=== PATIENT | male | born 1940 | race Caucasian/White ===

== ENCOUNTER → 2019-08-17 | Outpatient (CLI) | payer MEDICARE, OTHER ==
[2019-08-17 16:44] LABS: HCT 40.4 % (39.0-53.0); HGB 13.3 gm/dL (13.0-17.5); Mean Platelet Volume 7.6; Platelet Count 221 k/uL (150-450); RBC 4.59 m/uL (4.30-5.90); RDW 13.6 % (11.5-15.5); WBC 8.5 k/uL (3.8-10.6)
[2019-08-17 16:52] LABS: Potassium 4.3 mmol/L (3.5-5.1)
== END | disposition home or self-care (01) ==
LOC: LABPAT 16:19
DX: Z01.812 Encounter for preprocedural laboratory examination (principal); I20.8 Other forms of angina pectoris
CPT/HCPCS: 80051; 82565; 84520; 85027

== ENCOUNTER 2019-08-21 10:21 | Day surgery (SDC) | payer MEDICARE, OTHER ==
[2019-08-20 09:19] VITALS: BMI 26.2
[~2019-08-21 10:21] MED LIST: ALPRAZolam 0.25 MG TAB PO PRN; ALPRAZolam 0.5 MG TAB PO PRN; ASPIRIN 325 MG TAB PO ONE; ATORVASTATIN 80 MG TAB PO ONE; NITROGLYCERIN SL TABS 0.4 MG TAB SUBLINGUAL PRN; SODIUM CHLORIDE 0.9% 1,000 ML in EMPTY BAG 1 BAG IV ONE
[2019-08-21] MEDS ORDERED: LIDOCAINE 1% INJ 10MG/ML (20 ML MDV) ONE (11:28)
[2019-08-21] MEDS ORDERED: fentaNYL (PF) 50 MCG/ML 2 ML AMP ONE (11:28)
[2019-08-21] MEDS ORDERED: HEPARIN SODIUM 1,000 UN/ML (10ML VL) ONE (11:29)
[2019-08-21] MEDS ORDERED: VERAPAMIL 2.5 MG/ML 2 ML AMP ONE (11:29)
[2019-08-21] MEDS: MIDAZOLAM 2 MG/2 ML VIAL IV ONE ×2 (11:34→12:17)
[2019-08-21] MEDS ORDERED: fentaNYL (PF) 50 MCG/ML 2 ML AMP IV ONE (11:36)
[2019-08-21] MEDS ORDERED: LIDOCAINE 1% INJ 10MG/ML (20 ML MDV) SQ ONE (11:37)
[2019-08-21] MEDS: VERAPAMIL SYRINGE (5 MG/10 ML) INTRAARTER ONE ×2 (11:44→13:13)
--- NOTE | 2019-08-21 12:06 | P.CARDCATH ---
Date of Procedure: 08/21/19 Preoperative Diagnosis: Crescendo angina Postoperative Diagnosis: Critical lesion involving the distal RCA and moderate disease involving the circumflex Description of Procedure: HISTORY: This is a 79-year-old gentleman with history of ischemic heart disease with a previous myocardial infarction and stent placement of the LAD in 1996 and also stent placement of the RCA for angina in 2003. Patient presented to the hospital with complaints of exertional chest discomfort for the last 2 weeks which is eccentric in nature. Patient is advised to have a cardiac catheterization for definitive diagnosis. CONSENT:I have discussed the risks, benefits and alternative therapies for the above-mentioned procedure and for both sedation/analgesia as well as necessary blood product administration, if indicated, as they pertain to this patient. The patient has indicated understanding and acceptance of the risks and procedures discussed. PROCEDURE: Patient was brought to the lab in a fasting state. Patient was given some IV sedation. The right wrist is infiltrated with lidocaine and right radial artery was entered using Seldinger technique. A 6-Indonesian catheter was left in place and selective coronary arteriography was performed. Patient tolerated the procedure well. Patient is waiting to have stent placement of the RCA by Dr. YVETTE Villa. No immediate complications were noted and patient was transferred to [facility] in a stable condition Conscious Sedation: Versed 1mg Fentanyl 50 g Duration 27minutes HEMODYNAMICS: The aortic pressure is 139/74. The left ventricular end-diastolic pressure was about 5. There was no gradient across the aortic valve SELECTIVE CORONARY ARTERIOGRAPHY: LEFT MAIN: The left coronary system is calcified. The left main coronary artery is a relatively small with mild disease without any critical lesions THE LEFT ANTERIOR DESCENDING CORONARY ARTERY: This is a fairly caliber vessel giving rise to 2 diagonal and septal branches. The LAD has mild diffuse disease and has patent stent without any significant critical lesions THE LEFT CIRCUMFLEX AND IS CORONARY ARTERY: This is a moderate caliber vessel with about 60-70% stenosis in the midportion which appears to be stable. Again calcified vessel THE RIGHT CORONARY ARTERY:. This is a calcified vessel with a diffuse plaque. There is a critical 95% stenosis involving the distal RCA before the bifurcation to PDA and PLV LEFT VENTRICULOGRAPHY: Not performed FINAL IMPRESSION: Critical lesion involving the distal RCA. Diffusedly diseased and calcified vessels. There is moderate to severe disease and also the midcircumflex also PLAN: Stent placement of the RCA. The circumflex lesion is chronic and stable. May consider doing a functional evaluation to see visit ischemia in the circumflex distribution in the future PROGNOSIS: Fair
[2019-08-21] MEDS ORDERED: BIVALIRUDIN BOLUS 250 MG/50 ML IV ONE (12:44)
[2019-08-21] MEDS ORDERED: BIVALIRUDIN 250 MG in SODIUM CHLORIDE 0.9% 50 ML IV ONE (12:45)
[2019-08-21] MEDS ORDERED: HYDROmorphone 1 MG/ML 1 ML SYRINGE ONE (13:06)
[2019-08-21] MEDS ORDERED: HYDROmorphone 1 MG/ML 1 ML SYRINGE IVP ONE (13:08)
[2019-08-21] MEDS ORDERED: NITROGLYCERIN 1000MCG/10ML SYRINGE INTRACORON ONE (13:10)
[2019-08-21] MEDS ORDERED: CLOPIDOGREL 75 MG TAB PO ONE (13:24)
[2019-08-21] MEDS ORDERED: ATROPINE SULFATE 0.1 MG/ML 10ML SYRINGE IV PRN (13:24)
[2019-08-21] MEDS ORDERED: IOPAMIDOL-370 125ML BTL INJ ONE (13:24)
[2019-08-21] MEDS ORDERED: RX INFO: IV CONTRAST WAS GIVEN 1 EACH MISC MISCELLANE PRN (13:24)
[2019-08-21] MEDS ORDERED: IOPAMIDOL-370 100ML BTL INJ ONE (13:25)
[2019-08-21] MEDS ORDERED: CLOPIDOGREL 75 MG TAB ONE (13:28)
[2019-08-21] MEDS: SODIUM CHLORIDE 0.9% 1,000 ML IV SCH ×2 (16:36→23:06)
[2019-08-21] MEDS: METOPROLOL TARTRATE 25 MG TAB PO SCH (19:37)
[2019-08-21 20:55] LABS: Glucose,Whole Blood 89 mg/dL (75-99)
--- NOTE | 2019-08-21 21:26 | PTCA ---
PERCUTANEOUSTRANS CORORONARY ANGIOGRAPHY DATE OF SERVICE: 08/21/2019 PROCEDURE: PTCA and stenting of a super dominant RCA with a drug-eluting stent. PERFORMED BY: Dr. Ruben Villa. SEDATION: Moderate conscious sedation time was 41 minutes. CLINICAL INFORMATION: Enoc Juarez is an 79-year-old gentleman with history of CAD, hypertension, hyperlipidemia, and benign prostatic hypertrophy. He had a previous stent of LAD performed in 1996. In year 2003, I performed stenting of his RCA in the midportion. He now comes in with unstable angina picture, underwent cardiac cath by Dr. Yap, which revealed 95% distal RCA lesion just before bifurcation and the PDA has diffuse disease in it, but PLV was a larger vessel, free of significant disease. The previously stented LAD was patent, but the distal end of the stent had about a 40% to 50% narrowing. LAD stent was widely patent. He was advised intervention that was performed in the same setting. The procedure was performed from the right radial approach. PROCEDURE NOTE: The existing 6-Greenlandic introducer in the right radial artery was used to procedure. I used an ART 3.5 guide catheter to cannulate the left coronary artery and a Whisper wire to cross the lesion. A 2.5 12 mm NC Trek balloon was used to pre-dilate the lesion. The lesion was quite resistant. I then tried to advance the stent, but because of the tortuosity in the proximal portion of the RCA, the stent would push the guide catheter back. After a couple of attempts, I switched over to a GuideLiner. I placed the GuideLiner beyond the tortuous segment in the proximal portion of the RCA and with the GuideLiner in position, I advanced a 3.0 caliber 12 mm Xience stent and deployed this at 13 atmospheres. Patient had chest pain and inferior ST elevation. Excellent angiographic result was achieved without complication. I used the same balloon and dilated the distal end of the previous stent at 12 atmospheres. Excellent angiographic result was achieved. Patient was chest pain free. EKG was normal. Excellent angiographic result without complication was achieved. The patient received 600 mg of Plavix. He received Angiomax bolus and infusion as per protocol. Moderate conscious sedation time was 41 minute. Results were discussed with the patient and his friend. MMODL / IJN: [id number] /
[2019-08-21] MEDS: MAG HYDROX/AL HYDROX/SIMETH 30 ML CUP PO PRN (21:35)
[2019-08-21] MEDS ORDERED: HYDROcodone/APAP 7.5-325MG 1 EACH TAB PO ONE (23:15)
[2019-08-22 03:49] VITALS: RESP 18; TEMP 97.6
[2019-08-22] MEDS: METOPROLOL TARTRATE 25 MG TAB PO SCH (06:17)
[2019-08-22] MEDS: MAG HYDROX/AL HYDROX/SIMETH 30 ML CUP PO PRN (06:23)
[2019-08-22 06:35] LABS: Basophils % (A) 1 %; Eosinophils # (A) 0.2 k/uL (0-0.7); Eosinophils % (A) 4 %; HCT 36.4 % (39.0-53.0); Lymphocytes # (A) 1.2 k/uL (1.0-4.8); Lymphocytes % (A) 21 %; MCH 28.6 pg (25.0-35.0); MCHC 32.8 g/dL (31.0-37.0); Mean Platelet Volume 7.5; Monocytes # (A) 0.6 k/uL (0-1.0); Monocytes % (A) 10 %; Neutrophils # (A) 3.5 k/uL (1.3-7.7); Neutrophils % (A) 60 %; Platelet Count 188 k/uL (150-450); RBC 4.19 m/uL (4.30-5.90); RDW 13.7 % (11.5-15.5); WBC 5.7 k/uL (3.8-10.6)
[2019-08-22 06:59] LABS: Calcium 8.5 mg/dL (8.4-10.2); Potassium 3.8 mmol/L (3.5-5.1)
--- NOTE | 2019-08-22 08:22 | P.DS ---
Providers Date of admission: 08/21/2019 Attending physician: Marycarmen Yap Consults: 08/21/19 13:24 Consult Physician Routine Consulting Provider: [facility] Consult Reason/Comments: Post Interventional patient Do you want consulting provider notified?: Already Contacted Primary care physician: Violette Nina - Discharge Diagnosis(es) (1) Crescendo angina Current Visit: Yes Status: Acute (2) CAD (coronary artery disease) Current Visit: Yes Status: Acute (3) Essential hypertension Current Visit: Yes Status: Acute (4) Hypercholesterolemia Current Visit: Yes Status: Acute Hospital Course: This patient was brought in for cardiac catheterization because of crescendo angina. He was found have a critical lesion involving the distal RCA before the bifurcation to PDA and PLV. He also has a moderate to severe disease in the circumflex which is stable. The LAD appeared to be free of any significant occlusive disease with patent stent. Patient had a stent placement of the distal RCA with balloon dilatation of the mid RCA. Patient had some discomfort in the right arm. Last night, which is relieved with [place]. His pulses preserved and there is no hematoma in the site seemed to be healing well. He is not having pain at this time. Patient had some discomfort in the epigastric and chest area lasting for a few minutes. However, patient is free of any pain at this time. He is tolerating activity very well. His blood pressure is high this morning but patient got his morning medications. We will monitor his blood pressure and if the blood pressure is stable and patient is tolerating activity, patient will be discharged home later today. Patient will continue home medication except discontinuing Zocor and continue Lipitor 80 mg. He'll be also on Plavix 75 mg along with home medications. Follow-up in the office in one week Plan - Discharge Summary Discharge Rx Participant: Yes New Discharge Prescriptions: New Clopidogrel [Plavix] 75 mg PO DAILY #90 tab Atorvastatin [Lipitor] 80 mg PO HS #90 tab Nitroglycerin Sl Tabs [Nitrostat] 0.4 mg SUBLINGUAL Q5M PRN #100 tab PRN Reason: Chest Pain Aspirin 81 mg PO DAILY chew Metoprolol Tartrate [Lopressor] 25 mg PO BID tab Mag Hydrox/Al Hydrox/Simeth [Maalox] 30 ml PO Q4HR PRN ml PRN Reason: Heartburn Continue Cholecalciferol [Vitamin D3 (25 Mcg = 1000 Iu)] 1,000 unit PO DAILY Tamsulosin [Flomax] 0.4 mg PO DAILY Enalapril [Vasotec] 20 mg PO DAILY Atenolol [Tenormin] 25 mg PO DAILY Aspirin 81 mg PO DAILY Multivitamins, Thera [Multivitamin (formulary)] 1 tab PO DAILY Zinc 50 mg PO DAILY Vitamin B Complex 1 each PO DAILY Ubidecarenone [Co Q-10] 100 mg PO DAILY Discontinued Simvastatin [Zocor] 40 mg PO HS Discharge Medication List Aspirin 81 mg PO DAILY 08/20/19 [History] Atenolol [Tenormin] 25 mg PO DAILY 08/20/19 [History] Cholecalciferol [Vitamin D3 (25 Mcg = 1000 Iu)] 1,000 unit PO DAILY 08/20/19 [History] Enalapril [Vasotec] 20 mg PO DAILY 08/20/19 [History] Multivitamins, Thera [Multivitamin (formulary)] 1 tab PO DAILY 08/20/19 [History] Tamsulosin [Flomax] 0.4 mg PO DAILY 08/20/19 [History] Ubidecarenone [Co Q-10] 100 mg PO DAILY 08/20/19 [History] Vitamin B Complex 1 each PO DAILY 08/20/19 [History] Zinc 50 mg PO DAILY 08/20/19 [History] Aspirin 81 mg PO DAILY chew 08/22/19 [Rx] Atorvastatin [Lipitor] 80 mg PO HS #90 tab 08/22/19 [Rx] Clopidogrel [Plavix] 75 mg PO DAILY #90 tab 08/22/19 [Rx] Mag Hydrox/Al Hydrox/Simeth [Maalox] 30 ml PO Q4HR PRN ml 08/22/19 [Rx] Metoprolol Tartrate [Lopressor] 25 mg PO BID tab 08/22/19 [Rx] Nitroglycerin Sl Tabs [Nitrostat] 0.4 mg SUBLINGUAL Q5M PRN #100 tab 08/22/19 [Rx] Discharge Disposition: HOME SELF-CARE
[2019-08-22] MEDS ORDERED: TAMSULOSIN 0.4 MG CAP.ER.24H PO SCH (09:00)
[2019-08-22] MEDS ORDERED: LISINOPRIL 20 MG TAB PO SCH (09:00)
[2019-08-22] MEDS ORDERED: ASPIRIN 81 MG PO SCH (09:00)
[2019-08-22] MEDS ORDERED: CLOPIDOGREL 75 MG TAB PO SCH (09:00)
[2019-08-22] MEDS ORDERED: LISINOPRIL 10 MG TAB PO SCH (09:00)
[2019-08-22 11:09] VITALS: BP 188/97; PULSE 66
[2019-08-22] MEDS ORDERED: ATORVASTATIN 80 MG TAB PO SCH (21:00)
== END 2019-08-22 15:15 | disposition home or self-care (01) ==
LOC: CATHCVL 10:21 → 3SCARD 13:16 → CATHCVL 08-22 15:15
PROVIDERS: ATTEND Internal Medicine Cardiovascular Disease
DX: I25.110 Atherosclerotic heart disease of native coronary artery with unstable angina pectoris (principal); I10 Essential (primary) hypertension; I25.2 Old myocardial infarction; E78.5 Hyperlipidemia, unspecified; N40.0 Benign prostatic hyperplasia without lower urinary tract symptoms; E78.00 Pure hypercholesterolemia, unspecified; F17.210 Nicotine dependence, cigarettes, uncomplicated; Z95.5 Presence of coronary angioplasty implant and graft; Z79.82 Long term (current) use of aspirin; Z79.899 Other long term (current) drug therapy; Z88.8 Allergy status to other drugs, medicaments and biological substances
CPT/HCPCS: 93458; 80048; 85025; C9600; C1769 ×3; C1887 ×2; C1725; C1874; C1894; J2250; J2001; J3010; J1170; J0583; J1644; Q9967 ×2

== ENCOUNTER 2022-09-24 10:08 | Day surgery (SDC) | payer MEDICARE, OTHER ==
[~2022-09-24 10:08] MED LIST changes: -ASPIRIN 325 MG TAB PO ONE; +ASPIRIN 325 MG TAB PO STA; -ATORVASTATIN 80 MG TAB PO ONE; +ATORVASTATIN 80 MG TAB PO STA; +HEPARIN SODIUM,PORCINE 10,000 UNIT in SODIUM CHLORIDE 0.9% 1,000 ML IRRIGATION PRN; +HEPARIN SODIUM,PORCINE 2,500 UNIT in SODIUM CHLORIDE 0.9% 250 ML IRRIGATION PRN; -SODIUM CHLORIDE 0.9% 1,000 ML in EMPTY BAG 1 BAG IV ONE; +SODIUM CHLORIDE 0.9% 1,000 ML in EMPTY BAG 1 BAG IV SCH
[2022-09-24 10:59] VITALS: TEMP 97.9
[2022-09-24 11:09] LABS: Basophils % (A) 1 %; Eosinophils # (A) 0.2 k/uL (0-0.7); Eosinophils % (A) 3 %; HCT 23.3 % (39.0-53.0); HGB 7.2 gm/dL (13.0-17.5); Hypochromasia Marked; Lymphocytes # (A) 0.8 k/uL (1.0-4.8); Lymphocytes % (A) 18 %; MCHC 30.8 g/dL (31.0-37.0); MCV 74.7 fL (80.0-100.0); Mean Platelet Volume 7.2; Microcytosis Slight; Monocytes # (A) 0.4 k/uL (0-1.0); Monocytes % (A) 8 %; Neutrophils # (A) 3.1 k/uL (1.3-7.7); Neutrophils % (A) 67 %; Platelet Count 399 k/uL (150-450); Poikilocytosis Moderate; RBC 3.12 m/uL (4.30-5.90); RDW 14.8 % (11.5-15.5); WBC 4.6 k/uL (3.8-10.6)
[2022-09-24 11:19] LABS: Calcium 9.2 mg/dL (8.4-10.2)
[2022-09-24 11:24] LABS: Potassium 4.5 mmol/L (3.5-5.1)
[2022-09-24] MEDS ORDERED: HEPARIN SODIUM 1,000 UN/ML (10ML VL) ONE (12:19)
[2022-09-24] MEDS ORDERED: VERAPAMIL 2.5 MG/ML 2 ML AMP ONE (12:19)
[2022-09-24] MEDS ORDERED: LIDOCAINE 1% INJ 10MG/ML (20 ML MDV) ONE (12:34)
[2022-09-24] MEDS ORDERED: LIDOCAINE 1% INJ 10MG/ML (30 ML VIAL-PF) SQ ONE (12:45)
[2022-09-24] MEDS ORDERED: IOPAMIDOL-370 125ML BTL INJ ONE (13:07)
[2022-09-24] MEDS ORDERED: RX INFO: IV CONTRAST WAS GIVEN 1 EACH MISC MISCELLANE PRN (13:29)
[2022-09-24] MEDS ORDERED: SODIUM CHLORIDE 0.9% 1,000 ML IV SCH (13:30)
[2022-09-24 15:32] VITALS: BP 166/74; PULSE 58; RESP 16
[2022-09-24] MEDS ORDERED: FERROUS SULFATE 325 MG TAB PO SCH (17:30)
[2022-09-24] MEDS ORDERED: ATORVASTATIN 20 MG TAB PO SCH (21:00)
[2022-09-24] MEDS ORDERED: hydrALAZINE HCL 25 MG TAB PO SCH (21:00)
--- NOTE | 2022-09-24 22:38 | P.CARDCATH ---
Description of Procedure: PROCEDURES PERFORMED: Left heart catheterization, bilateral coronary angiography, iFR circumflex and RCA INDICATION: Unstable angina symptoms HISTORY: Patient is pleasant 82-year-old male who has been experiencing increased dyspnea on exertion and chest pain with exertion or last few months feeling similar to his prior anginal. Therefore recommended to undergo heart catheterization. Patient was found to have decreased hemoglobin 7.2 and recent note of darker stools and therefore recommended to undergo diagnostic procedure from a femoral approach without any heparin given. CONSENT:I have discussed the risks, benefits and alternative therapies for the above-mentioned procedure and for both sedation/analgesia as well as necessary blood product administration, if indicated, as they pertain to this patient. The patient has indicated understanding and acceptance of the risks and procedures discussed. PROCEDURE: After the risks, benefits and alternatives of the above mentioned procedure explained in detail with the patient, informed consent was obtained. Patient was taken to the catheterization lab and prepped and draped in usual fashion. 1% lidocaine was used to anesthetize the right femoral artery. A 6- Citizen [place] sheath was placed in the right femoral artery using modified Seldinger technique. Left coronary angiography was performed with a 6-Citizen [place] JL 4.0 catheter and right coronary angiography was performed with a 6-[place]izen [place] JR4 catheter in various views. A 6-Citizen [place] FR4 catheter was inserted into the left ventricle and pressure measurements were obtained. The decision was made to perform iFR of the RCA and circumflex. Using the diagnostic catheters A0.014 pressure wire was advanced in the proximal RCA as well as left main and then advanced 1 cm to the respective lesions. iFR was performed and was normal at 0.95 on the right and 0.57 on the circumflex. The wire was pulled. A right femoral angiogram showed adequate anatomy for closure and a 6-Citizen [place] Angio-Seal was placed with hemostasis achieved. The patient tolerated the procedure well. Patient was transported back to the post catheterization holding area in stable condition. Conscious Sedation: Patient was monitored under the direct supervision of vision of myself for conscious sedation using Versed and fentanyl for a total duration of 27 minutes HEMODYNAMICS: Ao: 144/72 LV: 139/5, LVEDP 14mmHg SELECTIVE CORONARY ARTERIOGRAPHY: LEFT MAIN: The left main is a large caliber vessel which bifurcates into the LAD and circumflex. There is no significant stenosis. LEFT ANTERIOR DESCENDING CORONARY ARTERY: LAD is a large caliber vessel which wraps around to the apex. There is diffuse 30-40% proximal to mid LAD stenosis. LEFT CIRCUMFLEX CORONARY ARTERY: Left circumflex is a moderate caliber vessel. OM1 has a high takeoff and has mild luminal irregularities. The proximal and mid circumflex have tandem 80% and 70% stenoses and gives off a moderate caliber OM 2 branch. RIGHT CORONARY ARTERY: The right coronary artery is a large caliber vessel which gives off a PDA and PLV branch and is the dominant vessel. There is a long area of proximal to mid RCA stents which are widely patent other than a mid RCA 50% stenosis. Distal RCA has a stent which is patent. iFR of mid RCA lesion normal at 0.95. FINAL IMPRESSION: 1. CAD as described above with 30-40% proximal to mid LAD stenosis, 70% and 80% stenoses of the proximal to mid circumflex, mid RCA 50% stenosis 2. Normal left sided filling pressures 3. iFR RCA normal at 0.95, iFR circumflex abnormal at 0.57 4. Recent anemia and melena concerning for GIB PLAN: 1. Aggressive risk factor modification per most recent ACC/AHA guidelines. 2. Follow-up in the office in 1-2 weeks. 3. Hold aspirin and Plavix going home given GIB 4. Iron tablets and referral to GI 5. If hgb stablilzes consider PCI circumflex.
[2022-09-25] MEDS ORDERED: PANTOPRAZOLE 40 MG TABLET PO SCH (07:30)
[2022-09-25] MEDS ORDERED: atenoloL 25 MG TAB PO SCH (09:00)
[2022-09-25] MEDS ORDERED: NON FORMULARY DRUG (Ubidecarenone [Co Q-10] 100 MG Capsule) PO SCH (09:00)
[2022-09-25] MEDS ORDERED: NON FORMULARY DRUG (Vitamin B Complex [Vitamin B Complex] 1 EACH Capsule) PO SCH (09:00)
[2022-09-25] MEDS ORDERED: ZINC SULFATE 220 MG CAP PO SCH (09:00)
[2022-09-25] MEDS ORDERED: MULTIVITAMINS, THERA 1 EACH TAB PO SCH (09:00)
[2022-09-25] MEDS ORDERED: lisinopriL 20 MG TAB PO SCH (09:00)
== END 2022-09-24 17:30 | disposition home or self-care (01) ==
LOC: CATHCVL 10:08
PROVIDERS: ATTEND Internal Medicine
DX: I25.110 Atherosclerotic heart disease of native coronary artery with unstable angina pectoris (principal); Z95.5 Presence of coronary angioplasty implant and graft; I08.0 Rheumatic disorders of both mitral and aortic valves; I44.7 Left bundle-branch block, unspecified; I25.2 Old myocardial infarction; D64.9 Anemia, unspecified; I10 Essential (primary) hypertension; E78.5 Hyperlipidemia, unspecified; Z87.891 Personal history of nicotine dependence; E78.00 Pure hypercholesterolemia, unspecified; Z88.8 Allergy status to other drugs, medicaments and biological substances; Z79.02 Long term (current) use of antithrombotics/antiplatelets; Z79.82 Long term (current) use of aspirin; Z79.899 Other long term (current) drug therapy
CPT/HCPCS: 93571; 99152; 99153; 93458; 93799; 80048; 85025; C1760; C1769 ×4; C1894; J2001; Q9967

== ENCOUNTER → 2023-03-21 | Day surgery (SDC) | payer MEDICARE, OTHER ==
[2023-03-15 12:18] VITALS: BMI 23.6
[~2023-03-21] MED LIST changes: +ASPIRIN 325 MG TAB PO ONE; -ASPIRIN 325 MG TAB PO STA; +ATORVASTATIN 20 MG TAB PO SCH; +ATORVASTATIN 80 MG TAB PO ONE; -ATORVASTATIN 80 MG TAB PO STA; +ATROPINE SULFATE 0.1 MG/ML 10ML SYRINGE IV PRN; +CHOLECALCIFEROL 25 MCG (1000 IU) TABLET PO SCH; +CLOPIDOGREL 75 MG TAB PO SCH; +FERROUS SULFATE 325 MG TAB PO SCH; +HEPARIN SODIUM 1,000 UN/ML (10ML VL) ONE; +HEPARIN SODIUM,PORCINE (1 ML) 2,500 UNIT in SODIUM CHLORIDE 0.9% 250 ML IRRIGATION PRN; -HEPARIN SODIUM,PORCINE 2,500 UNIT in SODIUM CHLORIDE 0.9% 250 ML IRRIGATION PRN; +IOPAMIDOL-370 100ML BTL INJ ONE; +LIDOCAINE 1% INJ 10MG/ML (20 ML MDV) ONE; +LIDOCAINE 1% INJ 10MG/ML (20 ML MDV) SQ ONE; +MAG HYDROX/AL HYDROX/SIMETH 30 ML CUP PO PRN; +MAGNESIUM OXIDE 400 MG TAB PO SCH; +MIDAZOLAM 2 MG/2 ML VIAL IVP ONE; +MULTIVITAMINS, THERA 1 EACH TAB PO SCH; +NIFEdipine XL 30 MG TAB.ER.24 PO SCH; +NON FORMULARY DRUG (Ubidecarenone [Co Q-10] 100 MG Capsule) PO SCH; +NON FORMULARY DRUG (Vitamin B Complex [Vitamin B Complex] 1 EACH Capsule) PO SCH; +PANTOPRAZOLE 40 MG TABLET PO SCH; +RX INFO: IV CONTRAST WAS GIVEN 1 EACH MISC MISCELLANE PRN; +VERAPAMIL 2.5 MG/ML 2 ML AMP ONE; +VERAPAMIL SYRINGE (5 MG/10 ML) INTRAARTER ONE; +ZINC SULFATE 220 MG CAP PO SCH; +ZOLPIDEM 5 MG TAB PO PRN; +atenoloL 25 MG TAB PO SCH; +fentaNYL (PF) 50 MCG/ML 2 ML AMP IVP ONE; +fentaNYL (PF) 50 MCG/ML 2 ML AMP ONE; +hydrALAZINE HCL 25 MG TAB PO SCH; +lisinopriL 20 MG TAB PO SCH
[2023-03-21 10:51] LABS: Basophils % (A) 1 %; Eosinophils # (A) 0.2 k/uL (0-0.7); Eosinophils % (A) 3 %; HCT 42.6 % (39.0-53.0); HGB 14.1 gm/dL (13.0-17.5); Lymphocytes # (A) 1.2 k/uL (1.0-4.8); Lymphocytes % (A) 24 %; MCH 29.2 pg (25.0-35.0); MCHC 33.1 g/dL (31.0-37.0); MCV 88.2 fL (80.0-100.0); Mean Platelet Volume 7.6; Monocytes # (A) 0.5 k/uL (0-1.0); Monocytes % (A) 11 %; Neutrophils # (A) 2.9 k/uL (1.3-7.7); Neutrophils % (A) 59 %; Platelet Count 252 k/uL (150-450); RBC 4.84 m/uL (4.30-5.90); RDW 14.1 % (11.5-15.5)
[2023-03-21 11:01] VITALS: RESP 16; TEMP 97.5
[2023-03-21 11:03] LABS: African American GFR (CKD) 79 (>60 ml/min/1.73 sqM); Anion Gap 9 mmol/L; Blood Urea Nitrogen 19 mg/dL (9-20); Calcium 9.2 mg/dL (8.4-10.2); Carbon Dioxide 24 mmol/L (22-30); Chloride 108 mmol/L (98-107); Glucose 98 mg/dL (74-99); Non-African American GFR(CKD) 68 (>60 ml/min/1.73 sqM); Sodium 141 mmol/L (137-145)
[2023-03-21 11:13] LABS: Potassium 4.6 mmol/L (3.5-5.1)
[2023-03-21] MEDS: HEPARIN SODIUM 1,000 UN/ML (10ML VL) IV ONE ×2 (12:19→12:28)
[2023-03-21] MEDS: NITROGLYCERIN 1000MCG/10ML SYRINGE INTRACORON ONE ×2 (12:36→12:53)
--- NOTE | 2023-03-21 14:13 | P.PRCINT ---
Percutaneous Coronary Int. - Percutaneous Coronary Intervention Percutaneous Coronary Intervention: PROCEDURES PERFORMED: Left heart catheterization, bilateral coronary angiography, PCI circumflex with overlapping 3.0 x 38 and 3.0 x 12mm Xience ADDI INDICATION: Unstable angina symptoms, CAD with abnormal iFR circumflex CONSENT:I have discussed the risks, benefits and alternative therapies for the above-mentioned procedure and for both sedation/analgesia as well as necessary blood product administration, if indicated, as they pertain to this patient. The patient has indicated understanding and acceptance of the risks and procedures discussed. PROCEDURE: After the risks, benefits and alternatives of the above mentioned procedure explained in detail with the patient, informed consent was obtained. Patient was taken to the catheterization lab and prepped and draped in usual fashion. 1% lidocaine was used to anesthetize the right radial artery. A 6- Hungarian sheath was placed in the right radial artery using modified Seldinger technique. Right coronary angiography was performed with a 5-Hungarian AR2 kirby ter in various views. A 6-Hungarian FR4 catheter was inserted into the left ventricle and pressure measurements were obtained. The decision was made to perform PCI of the circumflex. Heparin was given for ACT greater than 250. A 6-Hungarian CLS 3.5 guide was used engage the left main. A 0.014 BMW wire was advanced in the distal circumflex. Predilation was performed with a 2.5 x 20 mm MNF 3.0 x 12 mm noncompliant balloon. Next with the help of a maegan wire a 3.0 x 38 mm Xience ADDI was placed from the proximal to mid circumflex. The stem was not long enough to reach the entire lesion and therefore an additional 3.0 x 12 mm Xience ADDI was placed at the distal edge. The stents were postdilated with a 3.0 x 12 mm noncompliant balloon. The wire was pulled and final angiograms were performed. Per intervention there is a 80% stenosis and GERTRUDIS-3 flow and postintervention there was 0% stenosis and GERTRUDIS-3 flow. The patient tolerated the procedure well. Patient was transported back to the post catheterization holding area in stable condition. Conscious Sedation: Patient was monitored under the direct supervision of vision of myself for conscious sedation using Versed and fentanyl for a total duration of 44 minutes HEMODYNAMICS: Ao: 138/75 LV: 131/7, LVEDP 18 mmHg SELECTIVE CORONARY ARTERIOGRAPHY: LEFT MAIN: The left main is a large caliber vessel which bifurcates into the LAD and circumflex. There is no significant stenosis. LEFT ANTERIOR DESCENDING CORONARY ARTERY: LAD is a large caliber vessel which wraps around to the apex. There is diffuse 40% proximal to mid LAD stenosis. LEFT CIRCUMFLEX CORONARY ARTERY: Left circumflex is a moderate caliber vessel. OM1 has a high takeoff and has mild luminal irregularities. The proximal and mid circumflex have tandem 80% and 70% stenoses and gives off a moderate caliber OM 2 branch. RIGHT CORONARY ARTERY: The right coronary artery is a large caliber vessel which gives off a PDA and PLV branch and is the dominant vessel. There is a long area of proximal to mid RCA stents which are widely patent other than a mid RCA 50% stenosis. Distal RCA has a stent which is patent. FINAL IMPRESSION: 1. CAD as described above with 40% proximal to mid LAD stenosis, 70% and 80% stenoses of the proximal to mid circumflex, mid RCA 50% stenosis 2. Mildly elevated left sided filling pressures 3. S/p PCI circumflex with overlapping 3.0 x 38 and 3.0 x 12mm Xience ADDI 4. History of GIB PLAN: 1. Aggressive risk factor modification per most recent ACC/AHA guidelines. 2. Continue aspirin and Plavix for 6 months or sooner if he has significant bleeding with his history of anemia in the past.
[2023-03-21 18:57] VITALS: BP 141/67; PULSE 68
== END ==
LOC: CATHCVL 10:00
PROVIDERS: ATTEND Internal Medicine
DX: I25.10 Atherosclerotic heart disease of native coronary artery without angina pectoris (principal); I11.0 Hypertensive heart disease with heart failure; I50.9 Heart failure, unspecified; I42.8 Other cardiomyopathies; E78.5 Hyperlipidemia, unspecified; E11.9 Type 2 diabetes mellitus without complications; F10.90 Alcohol use, unspecified, uncomplicated; Z79.899 Other long term (current) drug therapy; Z87.891 Personal history of nicotine dependence; Z79.82 Long term (current) use of aspirin; Z79.84 Long term (current) use of oral hypoglycemic drugs
CPT/HCPCS: 93458; 80048; 85025; C9600; C1769 ×2; C1887; C1894; C1874 ×2; C1725 ×2; J2250; J2001; J3010; J1644; Q9967; J2305

== ENCOUNTER 2024-08-28 08:33 | Day surgery (SDC) | payer MEDICARE, OTHER ==
[~2024-08-28 08:33] MED LIST changes: -ASPIRIN 325 MG TAB PO ONE; -ATORVASTATIN 20 MG TAB PO SCH; -ATORVASTATIN 80 MG TAB PO ONE; -ATROPINE SULFATE 0.1 MG/ML 10ML SYRINGE IV PRN; -CHOLECALCIFEROL 25 MCG (1000 IU) TABLET PO SCH; -CLOPIDOGREL 75 MG TAB PO SCH; -FERROUS SULFATE 325 MG TAB PO SCH; -HEPARIN SODIUM 1,000 UN/ML (10ML VL) ONE; -HEPARIN SODIUM,PORCINE (1 ML) 2,500 UNIT in SODIUM CHLORIDE 0.9% 250 ML IRRIGATION PRN; -HEPARIN SODIUM,PORCINE 10,000 UNIT in SODIUM CHLORIDE 0.9% 1,000 ML IRRIGATION PRN; -IOPAMIDOL-370 100ML BTL INJ ONE; -LIDOCAINE 1% INJ 10MG/ML (20 ML MDV) ONE; -LIDOCAINE 1% INJ 10MG/ML (20 ML MDV) SQ ONE; -MAG HYDROX/AL HYDROX/SIMETH 30 ML CUP PO PRN; -MAGNESIUM OXIDE 400 MG TAB PO SCH; -MIDAZOLAM 2 MG/2 ML VIAL IVP ONE; -MULTIVITAMINS, THERA 1 EACH TAB PO SCH; -NIFEdipine XL 30 MG TAB.ER.24 PO SCH; -NON FORMULARY DRUG (Ubidecarenone [Co Q-10] 100 MG Capsule) PO SCH; -NON FORMULARY DRUG (Vitamin B Complex [Vitamin B Complex] 1 EACH Capsule) PO SCH; -PANTOPRAZOLE 40 MG TABLET PO SCH; -RX INFO: IV CONTRAST WAS GIVEN 1 EACH MISC MISCELLANE PRN; -SODIUM CHLORIDE 0.9% 1,000 ML in EMPTY BAG 1 BAG IV SCH; -VERAPAMIL 2.5 MG/ML 2 ML AMP ONE; -VERAPAMIL SYRINGE (5 MG/10 ML) INTRAARTER ONE; -ZINC SULFATE 220 MG CAP PO SCH; -ZOLPIDEM 5 MG TAB PO PRN; -atenoloL 25 MG TAB PO SCH; -fentaNYL (PF) 50 MCG/ML 2 ML AMP IVP ONE; -fentaNYL (PF) 50 MCG/ML 2 ML AMP ONE; -hydrALAZINE HCL 25 MG TAB PO SCH; -lisinopriL 20 MG TAB PO SCH
[2024-08-28 09:23] VITALS: RESP 16; TEMP 98.6
[2024-08-28] MEDS: IV FLUID CONTINUATION 1,000 ML IV ONE (09:23)
[2024-08-28] MEDS: ASPIRIN 325 MG TAB PO STA (09:24)
[2024-08-28] MEDS: SODIUM CHLORIDE 0.9% 1,000 ML in EMPTY BAG 1 BAG IV SCH (09:24)
[2024-08-28 09:28] LABS: Basophils % (A) 1 %; Eosinophils # (A) 0.2 k/uL (0-0.7); Eosinophils % (A) 3 %; HCT 32.8 % (39.0-53.0); HGB 9.8 gm/dL (13.0-17.5); Hypochromasia Marked; Lymphocytes # (A) 1.2 k/uL (1.0-4.8); Lymphocytes % (A) 21 %; MCH 24.4 pg (25.0-35.0); MCV 81.5 fL (80.0-100.0); Mean Platelet Volume 7.3; Monocytes # (A) 0.6 k/uL (0-1.0); Monocytes % (A) 10 %; Neutrophils # (A) 3.6 k/uL (1.3-7.7); Neutrophils % (A) 62 %; Platelet Count 309 k/uL (150-450); RBC 4.02 m/uL (4.30-5.90); RDW 15.7 % (11.5-15.5); WBC 5.8 k/uL (3.8-10.6)
[2024-08-28] MEDS: HEPARIN SODIUM,PORCINE 10,000 UNIT in SODIUM CHLORIDE 0.9% 1,000 ML IRRIGATION PRN (11:00)
[2024-08-28] MEDS: HEPARIN SODIUM,PORCINE (1 ML) 2,500 UNIT in SODIUM CHLORIDE 0.9% 250 ML IRRIGATION PRN (11:00)
[2024-08-28] MEDS: fentaNYL (PF) 50 MCG/ML 2 ML AMP IVP ONE (11:09)
[2024-08-28] MEDS: MIDAZOLAM 2 MG/2 ML VIAL IVP ONE (11:10)
[2024-08-28] MEDS: LIDOCAINE 1% INJ 10MG/ML (20 ML MDV) SQ ONE (11:24)
[2024-08-28] MEDS: LIDOCAINE 1% INJ 10MG/ML (30 ML VIAL-PF) SQ ONE (11:24)
[2024-08-28] MEDS: VERAPAMIL SYRINGE (5 MG/10 ML) INTRAARTER ONE (11:25)
[2024-08-28] MEDS: HEPARIN SODIUM 1,000 UN/ML (10ML VL) IVP ONE (11:28)
[2024-08-28] MEDS: IOPAMIDOL-250 100ML BTL INTRAARTER ONE (11:49)
--- NOTE | 2024-08-28 11:55 | P.CARDCATH ---
Description of Procedure: PROCEDURES PERFORMED: Left heart catheterization, bilateral coronary angiography, ultrasound guided arterial access, iFR RCA INDICATION: Abnormal stress test CONSENT:I have discussed the risks, benefits and alternative therapies for the above-mentioned procedure and for both sedation/analgesia as well as necessary blood product administration, if indicated, as they pertain to this patient. The patient has indicated understanding and acceptance of the risks and procedures discussed. PROCEDURE: After the risks, benefits and alternatives of the above mentioned procedure explained in detail with the patient, informed consent was obtained. Patient was taken to the catheterization lab and prepped and draped in usual fashion. Ultrasound guidance was used to assess for arterial access. 1% lidocaine was used to anesthetize the right radial artery. A 6-Slovenian sheath was placed in the right radial artery using modified Seldinger technique and ultrasound guidance. Left coronary angiography was performed with a 5-Slovenian JL 3.5 catheter and right coronary angiography was performed with a 5-Slovenian AR2 catheter in various views. A 5-Sloven[place] AR2 catheter was inserted into the left ventricle and pressure measurements were obtained. There was some issue with the tube sensor during injections with some grainy pictures of the left coronary system however able to fully elucidate the coronary arteries and therefore still managed to complete the procedure. The decision was made to perform functional assessment of the RCA. Heparin was given. Using the AR-2, 0.014 pressure wire was advanced in the proximal RCA and normalized. It was then advanced 1 cm distal to the mid RCA lesion. iFR was normal at 0.94. The right radial sheath was removed and a TR band was placed with hemostasis achieved. The patient tolerated the procedure well. Patient was transported back to the post catheterization holding area in stable condition. Conscious Sedation: Patient was monitored under the direct supervision of myself for conscious sedation using Versed and fentanyl for a total duration of 18 minutes HEMODYNAMICS: Aorta: 138/72 LV: 134/3, LVEDP 12 SELECTIVE CORONARY ARTERIOGRAPHY: LEFT MAIN: The left main is a large caliber vessel which bifurcates into the LAD and circumflex. There is no significant stenosis. LEFT ANTERIOR DESCENDING CORONARY ARTERY: LAD is a large caliber vessel which wraps around to the apex. There are mild 10 to 20% stenosis LEFT CIRCUMFLEX CORONARY ARTERY: Left circumflex is a moderate caliber vessel with a patent proximal to mid circumflex stent with mild 10 to 20% stenosis. RIGHT CORONARY ARTERY: The right coronary artery is a large caliber vessel which gives off a PDA and PLV branch and is the dominant vessel. There is a mid RCA stent with diffuse 40 to 50% in-stent stenosis. FINAL IMPRESSION: 1. CAD as described above including 10 to 20% LAD stenosis, patent circumflex stent with 10 to 20% circumflex stenosis, 40 to 50% mid RCA in-stent stenosis 2. Normal left sided filling pressures 3. Normal iFR RCA PLAN: 1. Aggressive risk factor modification per most recent ACC/AHA guidelines. 2. Follow-up in the office in 1-2 weeks.
[2024-08-28 15:15] VITALS: BP 150/75; PULSE 66
== END 2024-08-28 15:21 | disposition home or self-care (01) ==
LOC: CATHCVL 08:33
PROVIDERS: ATTEND Internal Medicine
DX: I25.10 Atherosclerotic heart disease of native coronary artery without angina pectoris (principal); I10 Essential (primary) hypertension; E78.5 Hyperlipidemia, unspecified; I44.7 Left bundle-branch block, unspecified; I35.0 Nonrheumatic aortic (valve) stenosis; Z87.891 Personal history of nicotine dependence; Z79.899 Other long term (current) drug therapy; Z79.02 Long term (current) use of antithrombotics/antiplatelets
CPT/HCPCS: 93458; 93799; 85025; 99152; J2250; J1644 ×3; J2003 ×2; J3010; Q9966